=== PATIENT | female | born 1955 | race Caucasian/White ===

== ENCOUNTER → 2017-06-06 | Outpatient (CLI) | payer MEDICAID ==
[~2017-06-06] MED LIST: ACET325T14 PO; BISA10SU65 PR; DIAZ5TAB PO; DIPH25CA61 PO; DOCU-131 PO; ENOX30SY4 SQ; ERGO500017 PO; ONDA4TAB10 PO; OXYC1TAB7 PO; PHEN100O3 PO; POLY17PO5 PO; PRIM50TA PO; SENN1TAB7 PO
== END | disposition home or self-care (01) ==
LOC: CFH 14:12
PROVIDERS: ATTEND Physician Assistant Surgical
DX: S82.291D Other fracture of shaft of right tibia, subsequent encounter for closed fracture with routine healing (principal); M19.071 Primary osteoarthritis, right ankle and foot; X58.XXXD Exposure to other specified factors, subsequent encounter